=== PATIENT | female | born 1990 | race Caucasian/White ===

== ENCOUNTER 2016-11-15 14:30 | Emergency (ER) | payer OTHER ==
[2016-11-15 14:42] VITALS: BP 117/69
--- NOTE | 2016-11-15 15:10 | UC ---
Skin Complaint HPI - HPI Summary HPI Summary: Few days ago got a bug bite on her right lateratal thigh---now it has formed a hard painful abscess - History of Current Complaint Chief Complaint: UCSkin Time Seen by Provider: 11/15/16 14:59 Stated Complaint: SKIN COMPLAINT Hx Obtained From: Patient Hx Last Menstrual Period: 11/04/16 ?: No Onset/Duration: Sudden Onset, Lasting Days, Still Present Skin Exposure Onset/Duration: Worse Since: - 2 days Timing: Constant Onset Severity: Mild Current Severity: Moderate Location: Discrete - right mid lateral thigh Character: Pain, Redness Aggravating: Touch, Other - walking Alleviating: Nothing Associated Signs & Symptoms: Positive: Tenderness. Negative: Drainage, Bruising , Red Streaks Related History: Possible Reaction to: Insect - Allergy/Home Medications Allergies/Adverse Reactions: Allergies Allergy/AdvReac Type Severity Reaction Status Date / Time No Known Allergies Allergy Verified 06/23/15 14:59 Review of Systems Constitutional: Negative Skin: Other - painful raised red abscess right lateral thigh Eyes: Negative ENT: Negative Respiratory: Negative Cardiovascular: Negative Gastrointestinal: Negative Genitourinary: Negative Motor: Negative Neurovascular: Negative Musculoskeletal: Negative Neurological: Negative Psychological: Negative All Other Systems Reviewed And Are Negative: Yes PMH/Surg Hx/FS Hx/Imm Hx Previously Healthy: Yes - Surgical History Surgical History: None - Family History Known Family History: Positive: None - Social History Occupation: Employed Full-time Lives: With Family Alcohol Use: Occasionally Substance Use Type: None Smoking Status (MU): Never Smoked Tobacco - Immunization History Most Recent Influenza Vaccination: 2014 Most Recent Tetanus Shot: utd Physical Exam Triage Information Reviewed: Yes Appearance: Well-Appearing, No Pain Distress, Well-Nourished Vital Signs: Initial Vital Signs Temp 98.3 F 11/15/16 14:38 Pulse 76 11/15/16 14:38 Resp 18 11/15/16 14:38 BP 117/69 11/15/16 14:38 Pulse Ox 100 11/15/16 14:38 Vital Signs Reviewed: Yes Eye Exam: Normal Eyes: Positive: Conjunctiva Clear ENT Exam: Normal ENT: Positive: Normal ENT inspection, Hearing grossly normal, TMs normal. Negative: Nasal congestion, Nasal drainage, Trismus, Muffled/hoarse voice Dental Exam: Normal Neck exam: Normal Neck: Positive: Supple, Nontender, No Lymphadenopathy Respiratory Exam: Normal Respiratory: Positive: Chest non-tender, Lungs clear, Normal breath sounds, No respiratory distress, No accessory muscle use Cardiovascular Exam: Normal Cardiovascular: Positive: RRR, No Murmur, Pulses Normal, Brisk Capillary Refill Musculoskeletal Exam: Normal Musculoskeletal: Positive: Strength Intact, ROM Intact, No Edema Neurological Exam: Normal Neurological: Positive: Alert, Muscle Tone Normal Psychological Exam: Normal Skin Exam: Other Skin: Positive: Other - abscess 2 cm with 3 cm surrounding erythema, no fluctulance Course/Dx - Course Course Of Treatment: warm compress and soaks, bactrim, follow with pcp or retun fo I&D as needed - Differential Diagnoses - Skin Complaint Differential Diagnoses: Abscess, Cellulitis, Local Allergic Reaction, Tick Born Illness - Diagnoses Provider Diagnoses: Abscess with surrounding cellulitis right lateral thigh Discharge - Discharge Plan Condition: Stable Disposition: HOME Prescriptions: Ibuprofen TAB* [Motrin TAB* 800 MG] 800 mg PO Q8H #30 tab Sulfamethox/Trimethoprim DS* [Bactrim DS 800/160 TAB*] 1 tab PO BID #20 tab Patient Education Materials: Ibuprofen (By mouth), Abscess (ED), Heat Pack Application (ED) Referrals: Fabián Cox MD [Primary Care Provider] - If Needed
== END 2016-11-15 15:20 | disposition home or self-care (01) ==
LOC: UCEAST 14:30
DX: L02.415 Cutaneous abscess of right lower limb (principal); L03.115 Cellulitis of right lower limb
CPT/HCPCS: 99212; G0463

== ENCOUNTER 2017-02-15 12:40 | Emergency (ER) | payer OTHER ==
[2017-02-15 12:48] VITALS: BP 115/72
[2017-02-16 14:00] LABS: Trichomonas Source Endocervical (Negative)
--- NOTE | 2017-02-17 13:54 | UC ---
Progress - Progress Note Progress Note: Reviewed pt's cx. Noteworthy + Strep GP B. Rx Bactrim had been presribed. RN to call pt, recommend swith to amoxicillin. Stop Bactrim ds. Rx e-scribed.
--- NOTE | 2017-02-27 09:18 | UC ---
Savanna Frederick Jason, scribed for Renetta Sunshine DO on 02/15/17 at 1345 . Complaint Female HPI - HPI Summary HPI Summary: This patient is a 26 year old F presenting to [facility] with a chief complaint of symptoms since 3 days ago. The patient reports experiencing a burning sensation when urinating 3 days ago and observed cuts in the vaginal area. Additionally, the patient has history of chlamydia between 1 to 2 years ago, and states both she and her monogamous partner were treated for chlamydia and the sx resolved. The patient rates the pain 3/10 in severity. Symptoms aggravated by urination. Symptoms alleviated by nothing. Patient reports a dry vaginal mucosa a few days prior to onset of symptoms. - History Of Current Complaint Chief Complaint: UCGU Stated Complaint: PERSONAL Time Seen by Provider: 02/15/17 12:47 Hx Obtained From: Patient Hx Last Menstrual Period: 3 wks ago Onset/Duration: Sudden Onset, Lasting Days - 3 days ago, Still Present Timing: Constant Pain Intensity: 3 Pain Scale Used: 0-10 Numeric Aggravating Factor(s): Urination Alleviating Factor(s): Nothing - Allergies/Home Medications Allergies/Adverse Reactions: Allergies Allergy/AdvReac Type Severity Reaction Status Date / Time No Known Allergies Allergy Verified 02/15/17 12:48 Home Medications: Home Medications Norgestimate-Ethinyl Estradiol [Norgestimate/Eth... 0.18/0.215/0.25 mg-25 Mcg] 1 tab PO DAILY 02/15/17 [History Confirmed 02/15/17] PMH/Surg Hx/FS Hx/Imm Hx Previously Healthy: No Respiratory History: Asthma - negative GI/ History: Other - Chlamydia Other GI/ History: Chlamydia - Surgical History Surgical History: None - Family History Known Family History: Negative: Renal Disease, Blood Disorder - Social History Occupation: Student Lives: Alone Alcohol Use: Occasionally Substance Use Type: None Smoking Status (MU): Never Smoked Tobacco - Immunization History Most Recent Influenza Vaccination: 2014 Most Recent Tetanus Shot: utd Review of Systems Constitutional: Negative - fever Genitourinary: Dysuria - burning sensation, Other - Minor vaginal lacerations All Other Systems Reviewed And Are Negative: Yes Physical Exam Triage Information Reviewed: Yes Vital Signs: Initial Vital Signs Temp 98.0 F 02/15/17 12:45 Pulse 84 02/15/17 12:45 Resp 18 02/15/17 12:45 BP 115/72 02/15/17 12:45 Pulse Ox 100 02/15/17 12:45 Vital Signs Reviewed: Yes - Additional Comments Appearance: Well-Appearing, No Pain Distress, Well-Nourished Eyes: conjunctiva clear, no discharge ENT: Hearing grossly normal, no muffled/hoarse voice. Neck: Normal, Supple Respiratory/Lung Sounds: Lungs clear, Normal breath sounds, No respiratory distress, No accessory muscle use Cardiovascular: RRR, No murmur Abdomen (if she checks): Nontender, Soft, no guarding, not distended Bowel Sounds (if she checks): Present Musculoskeletal: Normal Neurological: Alert, muscle tone normal Psychiatric: Normal, age appropriate behavior Skin: Normal, Warm, Dry, Normal color Genitourinary: Evidence of mechanical injury along the edges of the labia minora (friction burn). The vagina was normal in appearance with no discharge, no blisters, and no lesions. Scant blood coming from the os. No cervical motion tenderness. Complaint Female Dx - Course Course Of Treatment: This patient is a 26 year old F presenting to [facility] with a chief complaint of symptoms since 3 days ago. The patient reports experiencing a burning sensation when urinating 3 days ago and observed cuts in the vaginal area. Additionally, the patient has history of chlamydia between 1 to 2 years ago, and states both she and her monogamous partner were treated for chlamydia and the sx resolved. The patient rates the pain 3/10 in severity. Symptoms aggravated by urination. Symptoms alleviated by nothing. Patient reports a dry vaginal mucosa a few days prior to onset of symptoms. Urinalysis reveals no significant abnormalities except trace leukocyte esterase, urine blood of 2+, and borderline high test. Patient will be discharged with prescription for Bactrim DS 800/160 TAB and follow up from PCP. The patient is agreeable with this plan. Dx of vaginitis, UTI, and possible . - Differential Dx/Diagnosis Provider Diagnoses: uti, vaginitis, possible Discharge - Discharge Plan Condition: Stable Disposition: HOME Prescriptions: Amoxicillin PO (*) [Amoxicillin 875 MG (*)] 875 mg PO BID #14 tab Patient Education Materials: (ED), Urinary Tract Infection in Women ( ED), Vaginitis (ED) Referrals: Fabián Cox MD [Primary Care Provider] - If Needed Additional Instructions: RIGHT NOW, THE PAIN ON THE EXTERNAL GENITALIA APPEARS TO BE THE RESULT OF MECHANICAL INJURY. WE RECOMMEND THAT YOU DO NOT HAVE SEX IF YOU ARE DRY. THAT MEANS THAT YOU ARE NOT READY FOR PENETRATION. EITHER WAIT AND PURSUE ACTIVITIES THAT WOULD MAKE YOU READY OR, AT LEAST USE A LUBRICANT. ORGANIC COCONUT OIL WOULD LIKELY BE A GOOD CHOICE. FOR NOW OBSTAIN FROM INTERCOURSE UNTIL THIS HAS HEALED COMPLETELY. WE ARE SENDING TESTS FOR GONORRHEA, CHLAMYDIA, YEAST AND BV. YOU WILL BE CALLED WITH ABNORMAL RESULTS. YOUR URINE TEST GAVE A "BORDERLINE" RESULT. SO WE DO NOT KNOW WHETHER OR NOT YOU ARE . SO FOR NOW, YOU SHOULD ACT IF YOU ARE AND BE RE-TESTED IN 48-72 HOURS. YOUR URINE ALSO SHOWED EVIDENC OF A UTI. SO WE ARE SENDING YOUR URINE FOR CULRURE AND STARTING TREATMENT WITH AN ANTIBIOTIC CALLED BACTRIM. ANTIBIOTIC THERAPY: You have been given an antibiotic prescription. It's important that you take all the medication, unless instructed otherwise by your physician. Failure to complete the entire course can result in relapse of your condition. Common side effects of antibiotics include nausea, intestinal cramping, or diarrhea. Women may develop vaginal yeast infections, and babies can get yeast (thrush) in the mouth following the use of antibiotics. Contact your physician if you develop significant side effects from this medication. Allergy to this antibiotic can result in hives, wheezing, faintness, or itching. If symptoms of allergy occur, stop the medication and call the doctor. ANYTIME YOU TAKE AN ANTIBIOTIC, IT IS IMPORTANT TO REPLENISH THE BODY'S SUPPLY OF "GOOD BACTERIA." YOU CAN GET GOOD BACTERIA FROM HIGH QUALITY CULTURED FOODS SUCH LOCAL YOGURT, SOUR KRAUT, RUBEN DAPHNEY, NATURALLY FERMENTED PICKLES AND PROBIOTIC DRINKS. YOU CAN ALSO GET GOOD BACTERIA FROM A PROBIOTIC SUPPLEMENT. The documentation as recorded by the Savanna sheppard Jason accurately reflects the service I personally performed and the decisions made by me, Renetta Sunshine DO.
== END 2017-02-15 14:28 | disposition home or self-care (01) ==
LOC: UCEAST 12:40
DX: N39.0 Urinary tract infection, site not specified (principal); B95.1 Streptococcus, group B, as the cause of diseases classified elsewhere; N76.0 Acute vaginitis; Z32.02 Encounter for pregnancy test, result negative; Z86.19 Personal history of other infectious and parasitic diseases
CPT/HCPCS: 81003; 84702; 87077; 87086; 87480; 87491; 87510; 87591; 87661; 99212; G0463